=== PATIENT | female | born 1930 | race Caucasian/White ===

== ENCOUNTER → 2016-09-14 | Outpatient (CLI) | payer OTHER | LOC: FIMAGING 14:22 | PROVIDERS: ATTEND Family Medicine Geriatric Medicine | DX: Z03.89 Encounter for observation for other suspected diseases and conditions ruled out (principal); I67.82 Cerebral ischemia ==

== ENCOUNTER 2017-12-19 12:19 | Inpatient (IN) | payer OTHER ==
--- NOTE | 2017-12-19 12:42 | EDPHY ---
General - History Smoking Status: Former smoker Time Seen by Provider: 12/19/17 12:32 Narrative: CHIEF COMPLAINT: Fall, hip pain HISTORY OF PRESENT ILLNESS: Patient presents by EMS with complaints of fall and hip pain. She states that she was in her living room last night walking in front of chairs when she tripped and fell. She was attempting to gather up items. She says she landed on her left hip and low back. Since then she has had severe pain on the left hip. This radiates into the left buttock. She denies striking her head or losing consciousness. She denies any headache, neck pain, chest, back or abdominal pain. She has complains of severe pain in the left hip and buttock. Mild pain in the left knee. She was unable to bear any weight, that she pressed her Alert button. Her independent living facility provided assistance for up to a bed. She woke this morning with no improvement in her symptoms and thus arrives here. No other associated complaints or modifying factors. She does not take any anticoagulants. REVIEW OF SYSTEMS: Ten systems reviewed and are negative unless otherwise noted in the HPI PCP: Dr. Guzman SPECIALISTS: Dr. Jenna Raymond, cardiology Dr. Morse, oncology PAST MEDICAL HISTORY: Breast cancer, rheumatoid arthritis, atrial fibrillation, pacemaker placement, pulmonary hypertension, sarcoma PAST SURGICAL HISTORY: Sarcoma removal, tonsillectomy, cholecystectomy, appendectomy, pacemaker placement SOCIAL HISTORY: Nonsmoker. Lives in independent living FAMILY HISTORY: Noncontributory EXAMINATION General Appearance: Alert, no distress Head: normocephalic, atraumatic. No depression, Mulligan sign or raccoon eyes. No hematoma. No outward signs of trauma. Eyes: Pupils equal and round, no conjunctival pallor or injection ENT, Mouth: Mucous membranes moist. Dentures in place. Airway widely patent Neck: Normal inspection, supple, non-tender no crepitus or deformity. Respiratory: Lungs are clear to auscultation. No wheezing, rhonchi or crackles Cardiovascular: Regular rate and rhythm. No murmur. Gastrointestinal: Abdomen is soft and nontender. No tympany rigidity. Back: non-tender, no bony abnormalities Neurological: GCS 15. A&O, nonfocal, strength is symmetric in the upper extremities. Unable to ambulate due to left hip pain Skin: Warm and dry, no rash. There are multiple areas of bruising. There is a left breast tissue disturbance consistent with blister formation and de chip. She has a Mepilex dressing in place over this. I do not appreciate any cellulitis. Extremities: Mild tenderness of the left knee. There is tenderness of the left greater trochanter and in the left inguinal canal. Unable to range the left hip due to pain. Range of motion of the lower extremities unable to be compared, but she does have range of motion of the left ankle without pain. Psychiatric: Mood and affect normal DIFFERENTIAL DIAGNOSES: Including but not limited to hip fracture, pelvic fracture, sprain, strain, knee contusion, knee sprain MDM: 12:40 p.m. Reported mechanical fall with left hip and pelvic pain as well as mild left knee pain. I have ordered plain films of these areas but I have also ordered CT scans of the head cervical spine given her fall at age 87. She has no complaints of pain anywhere else. Vital signs are within normal limits. She is in no acute distress. 1:40 p.m. Patient's niece is now at bedside. They would like to decline the CT scans of the head cervical spine. I discussed the risks, benefits and alternatives of doing so, particularly at age 87. She states that she is willing to assume the risks, I do feel that she is capable of making these decisions. Additionally, the niece at bedside is comfortable with holding off on CT scans at this time as well. I informed him that we will watch her and she reconsiders would be happy to perform the scans. Additionally, I discussed her plain films which do show inferior and superior pubic ramus fractures. I do not appreciate any hip fracture. This does clinically correlate with her location of pain. She is nonweightbearing due to the pain, thus she will need to be admitted for a further evaluation. 2:05 p.m. Case discussed with on-call orthopedist Dr. Fritz mcclellan. He will provide consultation for the pubic rami fractures. 2:13 p.m. Case discussed with hospitalist Dr. Guerrero. He will admit the patient is service. She is admitted in stable condition. I did discuss that the patient will likely need wound care for the left anterior chest skin changes. SUPERVISION: Patient was independently examined, but I discussed the case with my secondary supervising physician Dr. Tayla Otto ([facility]) - Diagnostics Imaging Results: Imaging Impressions Chest X-Ray 12/19/17 12:42 Impression: 1. Negative for acute posttraumatic sequela. 2. Suspect airways disease. 3. See above report for additional findings. Hip X-Ray 12/19/17 12:42 Impression: Mildly displaced fractures of the left superior and inferior pubic rami. Left Knee, 5 Views Clinical Indications: Pain following trauma. Findings: A fracture or other acute osseous abnormality is not identified. Generative changes are seen with joint space loss and bony hypertrophic changes most severe in the medial and patellofemoral compartments. Meniscal calcification is noted. There may be a minimal joint effusion. Impression: Left knee negative for fracture with degenerative changes and probable joint effusion noted. The graft Results called and discussed with [facility] PAC on 12/19/2017 at 14:00. Knee X-Ray 12/19/17 12:43 Impression: Mildly displaced fractures of the left superior and inferior pubic rami. Left Knee, 5 Views Clinical Indications: Pain following trauma. Findings: A fracture or other acute osseous abnormality is not identified. Generative changes are seen with joint space loss and bony hypertrophic changes most severe in the medial and patellofemoral compartments. Meniscal calcification is noted. There may be a minimal joint effusion. Impression: Left knee negative for fracture with degenerative changes and probable joint effusion noted. The graft Results called and discussed with [facility] PAC on 12/19/2017 at 14:00. Discussion: The patient was evaluated and managed by the Physician Digital Community Manager. I discussed the patient's presentation and course with the midlevel provider with them and agree with the evaluation. My co-signature indicates that I have reviewed this chart and I agree with the findings and plan of care as documented. I am the secondary supervising physician. (Tayla Otto) - Objective Vital Signs: Initial Vital Signs Temperature (C) 36.7 C 12/19/17 12:23 Heart Rate 77 12/19/17 12:23 Respiratory Rate 18 12/19/17 12:23 Blood Pressure 116/77 12/19/17 12:23 O2 Sat (%) 95 12/19/17 12:23 O2 Delivery Mode Room Air Allergies/Adverse Reactions: Penicillins Allergy (Verified 02/02/16 19:48) Rash Home Medications: Medication Instructions Recorded Ascorbic Acid [Vitamin C 500 mg 1,000 mg PO DAILY 06/16/15 (*)] Calcium Carbonate [Oyster Shell 500 mg PO DAILY 12/15/14 Calcium 500 mg (*)] Furosemide [Lasix 40 MG (*)] 60 mg PO DAILY 12/15/14 Vitamin B Complex [B Complex] 1 each PO DAILY 12/15/14 predniSONE 5 mg PO DAILY 12/15/14 Bimatoprost 0.01% [Lumigan 0.01% 1 drops EACHEYE HS 08/10/15 (*)] Dorzolamide 2% [Trusopt 2% (*)] 1 drops EACHEYE BID 08/10/15 traMADol [Ultram 50 mg (*)] 50 mg PO HS PRN 08/10/15 Herbals/Supplements -Info Only 1 ea PO DAILY 02/02/16 traZODone [traZODONE 50MG (*)] 25 mg PO HS PRN #0 tab 05/12/16 Acetaminophen [Tylenol ES 500 mg 500 mg PO Q8HRS PRN 12/19/17 (*)] Cholecalciferol Vit D3 [Vitamin D3 1,000 units PO DAILY 12/19/17 (*)] Diltiazem HCl [Cartia Xt] 120 mg PO DAILY 12/19/17 FLUoxetine [Prozac 20 MG (*)] 60 mg PO DAILY 12/19/17 Fulvestrant [Faslodex] 250 mg IM Q30D 12/19/17 Levothyroxine [Synthroid 50 mcg 50 mcg PO DAILY06 12/19/17 (*)] Metoprolol Succinate Xr [Toprol Xl 12.5 mg PO HS 12/19/17 25 mg (*)] [place]-3 Fatty Acids [Fish Oil 1000 1,000 mg PO DAILY 12/19/17 mg (*)] Palbociclib [Ibrance] 100 mg PO AD 12/19/17 Potassium Cl [Klor-Con 20 meq (*)] 20 meq PO DAILY 12/19/17 buPROPion XL [Wellbutrin Xl] 300 mg PO DAILY 12/19/17 Laboratory Results: Laboratory Results 12/19/17 12:55 12/19/17 12:55 12/19/17 12/19/17 12/19/17 12:55 12:55 12:55 WBC 2.86 10^3/uL L 10^3/uL (3.80-9.50) RBC 2.76 10^6/uL L 10^6/uL (4.18-5.33) Hgb 10.8 g/dL L g/dL (12.6-16.3) Hct 31.1 % L % (38.0-47.0) MCV 112.7 fL H fL (81.5-99.8) MCH 39.1 pg H pg (27.9-34.1) MCHC 34.7 g/dL g/dL (32.4-36.7) RDW 13.4 % % (11.5-15.2) Plt Count 63 10^3/uL L 10^3/uL (150-400) MPV 10.0 fL fL (8.7-11.7) Neut % (Auto) Not Reported Lymph % (Auto) Not Reported Hughes % (Auto) Not Reported Eos % (Auto) Not Reported Baso % (Auto) Not Reported Nucleat RBC Rel Count Not Reported Absolute Neuts (auto) Not Reported Absolute Lymphs (auto) Not Reported Absolute Monos (auto) Not Reported Absolute Eos (auto) Not Reported Absolute Basos (auto) Not Reported Absolute Nucleated RBC Not Reported Immature Gran % Not Reported Seg Neutrophils % 82.8 % % Band Neutrophils % 0 % % Lymphocytes % 6.1 % % Monocytes % 6.1 % % Eosinophils % 3.0 % % Basophils % 2.0 % % Metamyelocytes % 0 % % Myelocytes % 0 % % Promyelocytes % 0 % % Blast Cells % 0 % % Immature Gran # Not Reported Absolute Seg Neuts 2.37 10^/uL 10^/uL (1.70-6.50) Absolute Band Neuts 0.00 10^3/uL 10^3/uL (0.00-0.70) Absolute Lymphocytes 0.17 10^3/uL L 10^3/uL (1.00-3.00) Absolute Monocytes 0.17 10^3/uL L 10^3/uL (0.30-0.80) Absolute Eosinophils 0.09 10^3/uL 10^3/uL (0.03-0.40) Absolute Basophils 0.06 10^3/uL 10^3/uL (0.02-0.10) Absolute Metamyelocyte 0.00 10^3/mL 10^3/mL (0.00-0.00) Absolute Myelocytes 0.00 10^3/mL 10^3/mL (0.00-0.00) Absolute Promyelocytes 0.00 10^3/uL 10^3/uL (0.00-0.00) Absolute Plasma Cells 0.00 10^3/uL 10^3/uL (0.00-0.00) Absolute Blast Cells 0.00 10^3/uL 10^3/uL (0.00-0.00) Plasma Cells % 0 % % Platelet Estimate DECREASED L (ADEQ) Oval Macrocytes 1+ H PT 15.1 SEC H SEC (12.0-15.0) INR 1.17 H (0.83-1.16) APTT 26.3 SEC SEC (23.0-38.0) Sodium 135 mEq/L mEq/L (135-145) Potassium 4.1 mEq/L mEq/L (3.3-5.0) Chloride 101 mEq/L mEq/L (97-110) Carbon Dioxide 25 mEq/l mEq/l (22-31) Anion Gap 9 mEq/L mEq/L (8-16) BUN 20 mg/dL mg/dL (7-23) Creatinine 0.7 mg/dL mg/dL (0.6-1.0) Estimated GFR > 60 Glucose 107 mg/dL H mg/dL (70-100) Calcium 9.1 mg/dL mg/dL (8.5-10.4) Lipase 28 IU/L IU/L (23-300) Medications Given: Discontinued Medications Morphine Sulfate (Morphine) 2 mg IVP EDNOW ONE Stop: 12/19/17 12:46 Last Admin: 12/19/17 14:23 Dose: 2 mg Ondansetron HCl (Zofran) 4 mg IVP EDNOW ONE Stop: 12/19/17 12:46 Last Admin: 12/19/17 14:24 Dose: 4 mg Departure - Departure Disposition: [facility] Clinical Impression: Skin abnormality Fracture of left inferior pubic ramus Qualifiers: Encounter type: initial encounter Fracture type: closed Qualified Code(s): S32.592A - Other specified fracture of left pubis, initial encounter for closed fracture Fracture of left superior pubic ramus Qualifiers: Encounter type: initial encounter Fracture type: closed Qualified Code(s): S32.512A - Fracture of superior rim of left pubis, initial encounter for closed fracture Fall Qualifiers: Encounter type: initial encounter Qualified Code(s): W19.XXXA - Unspecified fall, initial encounter Condition: Good
[2017-12-19] MEDS ORDERED: ONDANSETRON 4 MG/2 ML VIAL IVP ONE (12:45)
[2017-12-19 14:04] LABS: INR 1.17 (0.83-1.16); PROTIME(PATIENT) 15.1 SEC (12.0-15.0)
[2017-12-19] MEDS ORDERED: ONDANSETRON DISINTEGRATING 4 MG TAB PO PRN (14:25)
[2017-12-19] MEDS ORDERED: ONDANSETRON 4 MG/2 ML VIAL IVP PRN (14:25)
[2017-12-19] MEDS ORDERED: ACETAMINOPHEN 325 MG TAB PO PRN (14:25)
[2017-12-19 14:39] LABS: PLATELET COUNT 63 10^3/uL (150-400)
--- NOTE | 2017-12-19 15:08 | PDGENHP ---
History and Physical - Chief Complaint fall, left hip pain - History of Present Illness the pt is a 87 yo female that presents after mechanical fall yesterday. Upon review of records, she has been having issues with balance and gait for the last 2 years. She states that she was in her living room last night walking in front of chairs when she tripped and fell. She was attempting to gather up items. She says she landed on her left hip and low back. Since then she has had severe pain on the left hip. This radiates into the left buttock. She denies striking her head or losing consciousness. She denies any headache, neck pain, chest, back or abdominal pain. She has complains of severe pain in the left hip and buttock. Mild pain in the left knee. She was unable to bear any weight, that she pressed her Alert button. Her independent living facility provided assistance for up to a bed. She woke this morning with no improvement in her symptoms and presented the the E.D. No other associated complaints or modifying factors. She does not take any anticoagulants. In regards to her hx of balance and gait, she reports that these started about 2 years ago following a mechanical fall during which she hit her head. She has seen her PCP and has been recommended to PT, but has not been able to do this. She does not report any coordination problems. She reports both weakness and sometimes feeling dizzy at various points throughout the day including when sitting, standing, and walking. She does not think there is a specific pattern. She has not been told that she is hypotensive or have orthostatic hypotension. She has not had chest pain or SOB. She denies any vestibular problem or vertigo. She does not have any focal weakness. She does not report that the weakness is progressive but has been persistent. She was taken off AC 2 years ago following her initial fall. In the ER she is found to have left mildly displaced superior and inferior pubic rami fracture. Dr. Fritz Duarte with Ortho has been consulted Imaging of the Head were not obtained as the pt did not want to. She has a hx of left breast cancer and is s/p left mastectomy. She has a wound and this is being followed by Dr. Roy. Labs reveal pancytopenia. A review of her records show that she has had Leukopenia and anemia in the past and mild thrombocytopenia. A CXR was unrevealing. She is on RA PCP: Dr. Guzman SPECIALISTS: Dr. Jenna Raymond, cardiology Dr. Morse, oncology PAST MEDICAL HISTORY: Breast cancer, rheumatoid arthritis, atrial fibrillation, pacemaker placement, pulmonary hypertension, sarcoma PAST SURGICAL HISTORY: Sarcoma removal, tonsillectomy, cholecystectomy, appendectomy, pacemaker placement SOCIAL HISTORY: Nonsmoker. Lives in independent living FAMILY HISTORY: Noncontributory History Information - Allergies/Home Medication List Allergies/Adverse Reactions: Penicillins Allergy (Verified 02/02/16 19:48) Rash Home Medications: Ascorbic Acid [Vitamin C 500 mg (*)] 1,000 mg PO DAILY 12/15/14 [Last Taken ] Calcium Carbonate [Oyster Shell Calcium 500 mg (*)] 500 mg PO DAILY 12/15/14 [ Last Taken 12/18/17] Furosemide [Lasix 40 MG (*)] 60 mg PO DAILY 12/15/14 [Last Taken 12/19/17] Vitamin B Complex [B Complex] 1 each PO DAILY 12/15/14 [Last Taken 12/19/17] predniSONE 5 mg PO DAILY 12/15/14 [Last Taken 12/19/17] Bimatoprost 0.01% [Lumigan 0.01% (*)] 1 drops EACHEYE HS 08/10/15 [Last Taken ] Dorzolamide 2% [Trusopt 2% (*)] 1 drops EACHEYE BID 08/10/15 [Last Taken ] traMADol [Ultram 50 mg (*)] 50 mg PO HS PRN 08/10/15 [Last Taken 12/18/17 21:00] Herbals/Supplements -Info Only 1 ea PO DAILY 02/02/16 [Last Taken 01/31/16] Acetaminophen [Tylenol ES 500 mg (*)] 500 mg PO Q8HRS PRN 12/19/17 [Last Taken 12/18/17 21:00] Cholecalciferol Vit D3 [Vitamin D3 (*)] 1,000 units PO DAILY 12/19/17 [Last Taken 12/19/17] Diltiazem HCl [Cartia Xt] 120 mg PO DAILY 12/19/17 [Last Taken 12/19/17] FLUoxetine [Prozac 20 MG (*)] 60 mg PO DAILY 12/19/17 [Last Taken 12/19/17] Fulvestrant [Faslodex] 250 mg IM Q30D 12/19/17 [Last Taken 1 Week Ago ~12/12/17] Levothyroxine [Synthroid 50 mcg (*)] 50 mcg PO DAILY06 12/19/17 [Last Taken ] Metoprolol Succinate Xr [Toprol Xl 25 mg (*)] 12.5 mg PO HS 12/19/17 [Last Taken 12/18/17] [place]-3 Fatty Acids [Fish Oil 1000 mg (*)] 1,000 mg PO DAILY 12/19/17 [Last Taken 12/18/17] Palbociclib [Ibrance] 100 mg PO AD 12/19/17 [Last Taken 12/16/17] Potassium Cl [Klor-Con 20 meq (*)] 20 meq PO DAILY 12/19/17 [Last Taken 12/19/17 ] buPROPion XL [Wellbutrin Xl] 300 mg PO DAILY 12/19/17 [Last Taken 12/19/17] I have personally reviewed and updated: medical history, social history - Social History Smoking Status: Former smoker Review of Systems Review of Systems: ROS: 10pt was reviewed & negative except for what was stated in HPI & below Physical Exam Physical Exam: Temp Pulse Resp BP Pulse Ox 36.7 C 77 18 116/77 95 12/19/17 12:23 12/19/17 12:23 12/19/17 12:23 12/19/17 12:23 12/19/17 12:23 Constitutional: no apparent distress Eyes: PERRL, EOMI Ears, Nose, Mouth, Throat: moist mucous membranes, hearing normal Cardiovascular: regular rate and rhythym, No edema Respiratory: no respiratory distress, no rales or rhonchi Gastrointestinal: normoactive bowel sounds Skin: warm Musculoskeletal: generalized weakness Neurologic: AAOx3, CN II-XII Intact, No facial droop Psychiatric: interacting appropriately, not anxious, not encephalopathic Lymph, Heme, Immunologic: No petechiae Lab Data & Imaging Review 12/19/17 12:55 12/19/17 12:55 WBC 2.86 10^3/uL (3.80-9.50) L 12/19/17 12:55 RBC 2.76 10^6/uL (4.18-5.33) L 12/19/17 12:55 Hgb 10.8 g/dL (12.6-16.3) L 12/19/17 12:55 Hct 31.1 % (38.0-47.0) L 12/19/17 12:55 MCV 112.7 fL (81.5-99.8) H 12/19/17 12:55 MCH 39.1 pg (27.9-34.1) H 12/19/17 12:55 MCHC 34.7 g/dL (32.4-36.7) 12/19/17 12:55 RDW 13.4 % (11.5-15.2) 12/19/17 12:55 Plt Count 63 10^3/uL (150-400) L 12/19/17 12:55 MPV 10.0 fL (8.7-11.7) 12/19/17 12:55 PT 15.1 SEC (12.0-15.0) H 12/19/17 12:55 INR 1.17 (0.83-1.16) H 12/19/17 12:55 APTT 26.3 SEC (23.0-38.0) 12/19/17 12:55 Sodium 135 mEq/L (135-145) 12/19/17 12:55 Potassium 4.1 mEq/L (3.3-5.0) 12/19/17 12:55 Chloride 101 mEq/L (97-110) 12/19/17 12:55 Carbon Dioxide 25 mEq/l (22-31) 12/19/17 12:55 Anion Gap 9 mEq/L (8-16) 12/19/17 12:55 BUN 20 mg/dL (7-23) 12/19/17 12:55 Creatinine 0.7 mg/dL (0.6-1.0) 12/19/17 12:55 Estimated GFR > 60 12/19/17 12:55 Glucose 107 mg/dL (70-100) H 12/19/17 12:55 Calcium 9.1 mg/dL (8.5-10.4) 12/19/17 12:55 Lipase 28 IU/L (23-300) 12/19/17 12:55 Assessment & Plan Assessment: #s/p Mechanical Fall (Acute) in pt with chronic balance and gait abnormalities. #Fracture of left inferior pubic ramus (Acute) #Fracture of left superior pubic ramus (Acute) #Left breast cancer, s/p mastectomy, with wound -Followed by Dr. Roy -Wound care to see -I have not notified Surgery as may be able to f/u as an outpatient #Generalized Weakness #Pancytopenia -Monitor for now, repeat labs. If worse, may need to f/u with Onc as outpatient vs inpatient #Macrocytosis #Hx of Afib, not on AC #RA #Hypothyroidism #chronic steroid use Plan: Per above pain mgmt Ortho to consult, although felt to be non surgical this patient will likely benefit from Rehab vs SNF PT/OT SCD given Thrombocytopenia. If stable consider chemical DVT proph check B12, Folate, repeat labs Tele check prealbumin appropriate home meds
[2017-12-19] MEDS ORDERED: traZODone 50 MG TAB PO PRN (15:13)
[2017-12-19] MEDS: traMADol 50 MG TAB PO PRN (18:32)
[2017-12-19] MEDS: METOPROLOL SUCCINATE XR 25 MG TAB PO SCH (20:51)
[2017-12-19] MEDS: Brinzolamide/Brimonidine Tart [Simbrinza 1%-0.2% Eye Drops] EACHEYE SCH (20:53)
[2017-12-19] MEDS: DORZOLAMIDE/TIMOLOL 10 ML OPHT.BTL EACHEYE SCH (20:54)
[2017-12-19] MEDS ORDERED: BIMATOPROST 0.01% 2.5 ML OPHT.BTL EACHEYE SCH (21:00)
[2017-12-19] MEDS ORDERED: DORZOLAMIDE 2% OPTH DROPS EACHEYE SCH (21:00)
[2017-12-19] MEDS: OXYCODONE/APAP 5/325 TAB PO PRN (21:35)
[2017-12-20] MEDS: LEVOTHYROXINE 50 MCG TAB PO SCH (05:16)
[2017-12-20] MEDS: traMADol 50 MG TAB PO PRN ×3 (05:16→21:30)
[2017-12-20 06:50] LABS: PLATELET COUNT 43 10^3/uL (150-400)
[2017-12-20] MEDS: VITAMIN B COMPLEX 1 EA CAP/TAB PO SCH (08:30)
[2017-12-20] MEDS: DILTIAZEM CD 120 MG CAP PO SCH (08:30)
[2017-12-20] MEDS: predniSONE 5 MG TAB PO SCH (08:30)
[2017-12-20] MEDS: FLUoxetine 20 MG CAP PO SCH (08:30)
[2017-12-20] MEDS: POTASSIUM CL 20 MEQ TAB PO SCH (08:30)
[2017-12-20] MEDS: OMEGA-3 FATTY ACIDS 1,000 MG CAP PO SCH (08:31)
[2017-12-20] MEDS: CHOLECALCIFEROL VIT D3 1,000 UNITS TAB PO SCH (08:32)
[2017-12-20] MEDS: buPROPion XL 150 MG TAB PO SCH (08:32)
[2017-12-20] MEDS: FUROSEMIDE 40 MG TAB PO SCH (08:32)
[2017-12-20] MEDS: ASCORBIC ACID 500 MG TAB PO SCH (08:32)
[2017-12-20] MEDS: CALCIUM CARBONATE 500 MG TAB PO SCH (08:32)
[2017-12-20] MEDS: DORZOLAMIDE/TIMOLOL 10 ML OPHT.BTL EACHEYE SCH ×2 (08:42→21:07)
[2017-12-20] MEDS ORDERED: Herbals/Supplements -Info Only PO SCH (09:00)
[2017-12-20] MEDS ORDERED: ENOXAPARIN 40 MG/0.4 ML SYR SC SCH (09:00)
--- NOTE | 2017-12-20 09:01 | WOCRNPDOC ---
WOCRN Advanced Assessment Note - Skin Integrity Problem, Advanced Assess Left Breast Dressing Type: Adaptic Touch, Allevyn Life Dressing Description: Shadowed Exudate Amount: Moderate Exudate Color: Red, Brown Exudate Characteristic(s): Serosanguinous Integumentary Issue Intervention: Dressing Changed, Dressing Initialed & Dated Dinah Wound Tissue: Scarred, Painful/Tender Dinah Wound Swelling: None Wound Bed Color: Red, Yellow Wound Bed Constitution: Granulation Tissue (30%), Red/Neibert - Non Granular Tissue (50%), Dried Exudate (20%) Wound Edges: Irregular Site Odor: Slight Site Measurement - Head-to-Toe Length X Width X Depth (cm): 6x9x0.1cm Skin Integrity Problem Comment: Chronic wound over L breast, s/p mastectomy for breast cancer. [facility] where she resides. Wound is currently moderately exudative, approx. 20% dried slough medially, remaining wound bed a mix of granulating and smooth tissues. C/o extreme pain and tenderness during assessment/cleansing of wound. Periwound skin is scarred, but otherwise intact. Applied Manukatex honey contact layer to soften slough, followed by Allevyn Life dressing. Additional wound care supplies sent to [facility] so that nurses may do the dressing changes going forward. Wound care will see patient again in one week, 12/27. Report given to polymerization kettle operatorRAIMUNDO Ferrera.
--- NOTE | 2017-12-20 10:33 | PDCONSULT ---
Anesthesia Associate Note: Orthopaedic Consult DOS 12/20/2017 HPI: Called by Trauma service to see Ms Duran at her bedside. Ms Duran is a 87y F s/p trip and fall onto left hip and buttock. She c/o groin and some flank pain with rolling in bed. Had significant pain with attempted mobilization in ED so was admitted for placement/PT. PMHx: includes Breast Ca, anemia. RA PSHx: includes mstectomy, pacemaker placement, appendectomy, cholecystectomy, tonsillectomy Meds: please see intake All: PCN FamHx: Noncontributory SocHx: lives independently. Ambulates at baseline. Denies smoking PE: AxOx3. TTP Left groin/pubis. Mild TTP left flank bruise and ischium Small bruise on left flank. SILT S/S/SP/Dp/T 5/ TA/GS/EHL/FHL WWP BLE Imaging: Left superior and inferior pubic rami fractures. No vertical displacement of left posterior pelvis. AP: 87yF h/o RA p/w Left sup/inf pubic rami fractures admitted for pain control and placement - WBAT LLE (but may tolerate Touchdown weightbearing far more - Suggest repeat pelvic films after patient mobilize (AP, Inlet, Outlet) - if no major displacement changes, continue WBAT/TDWB - Return to clinic for followup in 2-[address] Duarte - Pain control - PT/placement
--- NOTE | 2017-12-20 10:48 | ASMTCMCOM ---
CM Note CM Note Notes: Pt admitted after fall sustaining pubic/rami fx. Ortho consult this AM, no surgery planned. Pt lives at [facility]. CM met w/pt who is open to going to [facility] if needed prior to returning to [facility] living there. Spoke w/Juan Antonio at [facility] and she thinks she will have bed available. Referral sent to Juan Antonio, awaiting therapy evals and will need to add these to referral once available. CM will follow. Date Signed: 12/20/2017 10:47 AM Electronically Signed By:uHe Vazquez RN
--- NOTE | 2017-12-20 14:50 | HOSPPROG ---
Hospitalist Progress Note Assessment/Plan: 87y female with fall. First encounter, chart reviewed. D/W CM #s/p Mechanical Fall (Acute) in pt with chronic balance and gait abnormalities. -need rehab #Fracture of left inferior pubic ramus (Acute) -stable -appreciate ortho consult #Fracture of left superior pubic ramus (Acute) -stable #Left breast cancer, s/p mastectomy, with wound -Followed by Dr. Roy -Wound care to see -I have not notified Surgery as may be able to f/u as an outpatient #Generalized Weakness -rehab #Pancytopenia -stable -Monitor for now, repeat labs. If worse, may need to f/u with Onc as outpatient vs inpatient #Macrocytosis -stable #Hx of Afib, not on AC #RA #Hypothyroidism #chronic steroid use Plan: to rehab when able SCD given Thrombocytopenia. If stable consider chemical DVT proph Subjective: Still having pain. No other complaints. Eager to leave. Objective: Vital Signs Temp Pulse Resp BP Pulse Ox 36.6 C 79 14 86/49 L 96 12/20/17 11:03 12/20/17 11:03 12/20/17 11:03 12/20/17 11:03 12/20/17 11:03 Laboratory Results 12/20/17 05:11 12/19/17 12/20/17 12/21/17 05:59 05:59 05:59 Intake Total 700 450 Output Total 400 200 Balance 300 250 PT 15.1 SEC (12.0-15.0) H 12/19/17 12:55 INR 1.17 (0.83-1.16) H 12/19/17 12:55 - Physical Exam Constitutional: appears nourished, chronically ill appearing, uncomfortable Eyes: PERRL, anicteric sclera, EOMI Ears, Nose, Mouth, Throat: moist mucous membranes, hearing normal, ears appear normal Cardiovascular: irregularly irregular, No JVD, No edema Respiratory: no respiratory distress, no rales or rhonchi, reduced air movement Gastrointestinal: No tenderness, No ascites, No guarding Skin: warm, normal color, No mottled Musculoskeletal: pain with ROM, muscular tenderness, generalized weakness Neurologic: AAOx3 Psychiatric: not anxious, not encephalopathic, poor judgement, poor memory ICD10 Worksheet Patient Problems: Problems Problem Status Onset Depression - Depressive disorder Active Hypothyroidism Active Afib - Atrial fibrillation Active Essential hypertension Active Cellulitis Active Traumatic hematoma of face Acute Right rib fracture Acute Fall Acute Fracture of left inferior pubic ramus Acute Fracture of left superior pubic ramus Acute Skin abnormality Acute
[2017-12-20] MEDS ORDERED: BISACODYL 10 MG SUPP PR PRN (18:10)
[2017-12-20] MEDS ORDERED: POLYETHYLENE GLYCOL 3350 17 GM PKT PO PRN (18:10)
[2017-12-20] MEDS ORDERED: MAGNESIUM HYDROXIDE 30 ML UDCUP PO PRN (18:10)
[2017-12-20] MEDS ORDERED: LACTULOSE 20 GM/30 ML UDCUP PO PRN (18:10)
[2017-12-20] MEDS: Brinzolamide/Brimonidine Tart [Simbrinza 1%-0.2% Eye Drops] EACHEYE SCH (21:06)
[2017-12-20] MEDS: SENNOSIDES/DOCUSATE SODIUM TAB PO SCH (21:07)
[2017-12-20] MEDS ORDERED: NS 500 ML IV ONE (22:08)
[2017-12-20] MEDS: METOPROLOL SUCCINATE XR 25 MG TAB PO SCH (23:35)
[2017-12-21] MEDS: OXYCODONE/APAP 5/325 TAB PO PRN ×3 (02:34→20:54)
[2017-12-21] MEDS ORDERED: NS BOLUS 500 ML IV ONE (05:00)
[2017-12-21] MEDS: LEVOTHYROXINE 50 MCG TAB PO SCH (05:15)
[2017-12-21] MEDS: traMADol 50 MG TAB PO PRN (08:28)
[2017-12-21] MEDS: OMEGA-3 FATTY ACIDS 1,000 MG CAP PO SCH (08:36)
[2017-12-21] MEDS: VITAMIN B COMPLEX 1 EA CAP/TAB PO SCH (08:36)
[2017-12-21] MEDS: predniSONE 5 MG TAB PO SCH (08:36)
[2017-12-21] MEDS: DILTIAZEM CD 120 MG CAP PO SCH (08:36)
[2017-12-21] MEDS: CHOLECALCIFEROL VIT D3 1,000 UNITS TAB PO SCH (08:36)
[2017-12-21] MEDS: buPROPion XL 150 MG TAB PO SCH (08:37)
[2017-12-21] MEDS: SENNOSIDES/DOCUSATE SODIUM TAB PO SCH ×2 (08:37→20:54)
[2017-12-21] MEDS: CALCIUM CARBONATE 500 MG TAB PO SCH (08:37)
[2017-12-21] MEDS: FLUoxetine 20 MG CAP PO SCH (08:37)
[2017-12-21] MEDS: POTASSIUM CL 20 MEQ TAB PO SCH (08:37)
[2017-12-21] MEDS: DORZOLAMIDE/TIMOLOL 10 ML OPHT.BTL EACHEYE SCH ×2 (08:37→20:54)
[2017-12-21] MEDS: ASCORBIC ACID 500 MG TAB PO SCH (08:37)
[2017-12-21] MEDS: FUROSEMIDE 40 MG TAB PO SCH (08:38)
--- NOTE | 2017-12-21 10:54 | ASMTCMCOM ---
CM Note CM Note Notes: Juan Antonio with [facility] reports she now has a female bed, pt will not have to share with male. Pt PASRR triggered, faxed to [facility]. CM to follow. Date Signed: 12/21/2017 10:53 AM Electronically Signed By:SNEHAL Sánchez
--- NOTE | 2017-12-21 11:35 | GCON ---
[f rep st] CONSULTATION MEDICAL ONCOLOGY FOLLOWUP CONSULTATION REASON FOR CONSULTATION: Ongoing management of recurrent breast cancer. RECOMMENDATIONS: 1. Agree with wound care consultation as you are doing. 2. I would consult Radiation Oncology for consideration of palliative radiation to her left chest wa ll for reasons of pain control. 3. She will discuss continuation of Faslodex plus Ibrance with Dr. Laura Morse, who is her primary onc ologist, as an outpatient. The consideration would be as to whether to change her from her current h ormonal therapy to another treatment, such as low dose capecitabine. 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 She fell while going to bed. She fractured her left pelvis in 2 places. We were requested to stop by and see the patient to discuss her left chest wall recurrence and her br east cancer. The patient is currently complaining of pain in her left chest wall. Although this see ms acute at the moment, I think it has been ongoing even before her fall. Her wound has also not bee n healing well. The patient is mostly interested in measures that will help to relieve her pain and improve her quality of life. She knows she will be going to the care center at [facility] for urther care after this hospitalization. The patient's prognosis is limited by not only her breast cancer, but also the high risk of complicat ions after a pelvic fracture at her age. This will all need to be taken into consideration when deci ding what the most appropriate therapy might be. I have discussed this with the patient, as well as with her niece, as well as with Lito Aguayo, who is her primary oncologist. HISTORY OF PRESENT ILLNESS: Please see Assessment. PAST MEDICAL HISTORY: Remarkable for breast cancer, left breast, upper outer quadrant, which was adrienne gnosed in September 2014. At that time, she was stage IIB. She was estrogen and progesterone receptor p ositive and HER-2 negative. She was treated with a modified radical mastectomy and lymph node dissec tion. She had 1 positive lymph node out of 25. Her current evidence of metastatic disease is in lef t chest wall. However, because of her overall clinical condition, it has been difficult to fully tisha luate the extent of disease. In addition, her past medical history is remarkable for atrial fibrilla tion. She is status post AV derrick ablation and dual chamber pacemaker placement. She is on chronic anticoagulation. She has also had a history of pulmonary hypertension and using oxygen at night. 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 This was t reated at [facility]. She had surgery, followed by chemotherapy at that time. She has a history of osteoporosis diagnosed in 2014 on her DEXA scan. PAST SURGICAL HISTORY: Remarkable for the left mastectomy. She has also had the above-mentioned lef t shoulder sarcoma resection, pacemaker placement in 2013. She has had a cholecystectomy and a tonsi llectomy. FAMILY HISTORY: Remarkable for her having had a sister who of glioblastoma. She had 1 son who at age 55 of complications of an aneurysm, and another son has small lymphocytic lymphoma. SOCIAL HISTORY: The patient is and living at [facility]. 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 REVIEW OF SYSTEMS: Primarily remarkable for pain in her pelvis, open left chest wall wound requiring dressing changes and left chest wall pain. A 10-system review is otherwise unremarkable. PHYSICAL EXAMINATION: GENERAL: Reveals an alert woman in mild distress, mostly related to discomfor t of her chest wall and pelvis. SKIN: Her left chest wall shows an open wound that is consistent wi th local recurrence of her breast cancer. Thank you very much for allowing us to continue to participate in this pleasant woman's care. We starla novoa continue to assist with her management during this hospitalization and after discharge. /[id number]/MODL
--- NOTE | 2017-12-21 14:08 | HOSPPROG ---
Hospitalist Progress Note Assessment/Plan: 87y female with fall. D/W Dr Duque #s/p Mechanical Fall (Acute) in pt with chronic balance and gait abnormalities. -need rehab #Fracture of left inferior pubic ramus (Acute) -stable -appreciate ortho consult -pt refusing further xrays #Fracture of left superior pubic ramus (Acute) -stable #Left breast cancer, s/p mastectomy, with wound -Followed by Dr. Roy -Wound care to see #Chest wall pain -rec onc radiation -consult ordered for today #Generalized Weakness -rehab #Orthostatic -cards consult -appreciate Dr Muñiz -cont to hold meds #Pancytopenia -stable -Monitor for now, repeat labs. If worse, may need to f/u with Onc as outpatient vs inpatient #Macrocytosis -stable #Hx of Afib, not on AC #RA #Hypothyroidism #chronic steroid use Plan: to rehab when able SCD given Thrombocytopenia await radiation consult follow BP plan for DC to inpt rehab when BP stable Subjective: Still having significant pain when moving. No other specific issues. Objective: Vital Signs Temp Pulse Resp BP Pulse Ox 36.8 C 84 18 101/58 L 93 12/21/17 12:00 12/21/17 12:00 12/21/17 12:00 12/21/17 12:00 12/21/17 12:00 Laboratory Results 12/20/17 05:11 12/20/17 12/21/17 12/22/17 05:59 05:59 05:59 Intake Total 700 2230 Output Total 400 350 Balance 300 1880 PT 15.1 SEC (12.0-15.0) H 12/19/17 12:55 INR 1.17 (0.83-1.16) H 12/19/17 12:55 - Physical Exam Constitutional: appears nourished, chronically ill appearing, uncomfortable Eyes: PERRL, anicteric sclera, EOMI Ears, Nose, Mouth, Throat: moist mucous membranes, hearing normal, ears appear normal Cardiovascular: No JVD, No tachycardia, No edema Respiratory: no respiratory distress, no rales or rhonchi, reduced air movement Gastrointestinal: No tenderness, No ascites, No guarding Skin: warm, normal color, No mottled Musculoskeletal: no joint effusions, pain with ROM, generalized weakness Neurologic: AAOx3 Psychiatric: interacting appropriately, not anxious, not encephalopathic, thought process linear ICD10 Worksheet Patient Problems: Problems Problem Status Onset Depression - Depressive disorder Active Hypothyroidism Active Afib - Atrial fibrillation Active Essential hypertension Active Cellulitis Active Traumatic hematoma of face Acute Right rib fracture Acute Fall Acute Fracture of left inferior pubic ramus Acute Fracture of left superior pubic ramus Acute Skin abnormality Acute
--- NOTE | 2017-12-21 14:31 | GCON ---
[f rep st] CONSULTATION CARDIOLOGY CONSULTATION CHIEF COMPLAINT: Lightheadedness when standing. She has been found to be orthostatic while she is here in the hospital. Her blood pressure earlier w as 101/58 lying down and standing up it went to 72/58. She says she felt a little bit lightheaded th en, but that has not been a big complaint of hers. She has a lot of trouble with her balance, and she got herself into a bad position recently and fell and broke her pelvis, and then was admitted to the hospital for that. She said that she has almost no balance. It has gone away over a period of 2-3 years, and it has bee n gradually getting worse and worse, and now it is very easy for her to get in wrong positions or to not be able to catch her balance. She is trying to walk with a cane and a walker, and she is quite s uccessful walking with a walker. She had a fall and that is why she was admitted to the hospital. She had a history of atrial fibrill ation and came off her atrial fibrillation full anticoagulation, which would be recommended by her CH ADS-VASc score, because of her falls. She landed on her left hip and low back, and she had severe pain. She did not pass out. She did not hit her head. She denied palpitations. She was not being lightheaded at the time. She just knew t hat she was in trouble. She came into the emergency room and has since been admitted. What she is taking for atrial fibrillation for anticoagulation is aspirin only. She tells me that she is often weak now. She has a history of pulmonary hypertension. History of atrial fibrillation, but none recently. She sleeps on a slanted pillow. She does not wake up short of breath at night. She has no ankle swe lling that is significant. She has had no recent trauma to the head. She has a history of hypertens ion, and for that she takes diltiazem, Lasix and Lopressor. She has longstanding rheumatoid arthritis. CARDIAC RISK FACTORS: Positive for hypertension. Cardiac risk factors are negative for diabetes, hyperlipidemia, smoking, hyperuricemia, obesity, fami ly history of premature coronary disease or any known coronary artery disease in her case. The patient has said that she has had some congestive heart failure for several years and she sees [facility] for those issues. Her ejection fraction is said to be normal. She has not been hospital ized with congestive heart failure. MEDICATIONS: Medications are listed in the chart and include tramadol, dorzolamide, Lumigan, prednis one, furosemide, calcium carbonate, ascorbic acid, diltiazem, levothyroxine, metoprolol, potassium. ALLERGIES: Penicillin. FAMILY HISTORY: Her Dad had a myocardial infarction in his 60s. No 1 had premature coronary artery disease in the family, and no 1 had unexplained sudden in the family. REVIEW OF SYSTEMS: 10-point review of systems negative except for those issues that are noted above and the fact that the patient has had longstanding breast cancer. She has rheumatoid arthritis. She has a history of a pacemaker. She has had pulmonary hypertension. She has had sarcoma. The patien t has had pancytopenia before. SURGICAL HISTORY: Includes, but not limited to, sarcoma removal, tonsillectomy, cholecystectomy, pac emaker placement, left mastectomy. SOCIAL HISTORY: The patient was born in [place], [place] and grew up there. From there, she moved to [place] and lived in 3 different places in [place] with her , and they re tired to [place], where she lived for 26 years. Her and then her sister , and she came to be close to a niece here, and that was approximately 5 years ago. She does not smoke. She d oes not drink significant amounts of alcohol. She lives in independent living. PHYSICAL EXAMINATION: VITAL SIGNS: Her blood pressure is 101/58 lying flat, in standing it dropped to 72/58. She does not have any real complaints right now of being lightheaded. Earlier she has been lightheaded with changing position. HEAD/ NECK: Nontender. CARDIOVASCULAR: S 1, S2. Regular rhythm. Soft systolic murmur left sternal border. No diastolic murmur. No S3, S4. No rubs. PULMONARY: Reveals rhonchi bilaterally. No rales, wheezing, or dullness. ABDOMEN: Soft and nontender. CHEST: She has a pacemaker in place. She has a wound that is healing that Wound Ca re is taking care of. It is an open wound in the left chest consistent with local recurrence of christo st cancer presumably at this time. EXTREMITIES: Extremities reveal no edema, inflammation, or ulcer ation. No pain. PSYCH: No obvious anxiety or depression. NEUROLOGIC: Grossly intact, though she is orthostatic. SKIN: Skin shows age-related changes. FINDINGS: The patient is known to have had breast cancer in the left breast upper outer quadrant Sep, she was staged to be estrogen and progesterone receptor positive and HER-2 negative. She was treated with a modified radical mastectomy and lymph node dissection. She had 1 positive node a nd current evidence of metastatic disease is in the left chest wall. Her white count is 2.67. Her h ematocrit is 27.1. When she was admitted to the hospital, hematocrit was 31.1 with a white count of 2.86. As recently as 05/12/2016, her hematocrit was 35.8. Her platelet count is 43 now. Sodium is 135, potassium is 4.1, chloride is 101, carbon dioxide is 25, BUN is 20, creatinine is 0.7, glucose is 107. Her BNP is 540. Her pre-albumin is low at 17.5. Her pelvic films show superior an d inferior left pubic rami fractures. 1. Pelvic rami fractures. 2. Patient has incurred pelvic rami fractures while moving about at her own house. She had no loss of consciousness. She was not lightheaded at that time. She was not dizzy. She had no chest pain a nd no arrhythmias. 3. This is being managed and taken care. 4. Carcinoma of the breast with metastatic disease. 5. She is receiving help from Wound Care. She is being watched for this carefully, and the Oncology service is taking care of her cancer and the management of this problem. 6. Atrial fibrillation. 7. She has had a history of atrial fibrillation and she had been feeling breathless and short of rachel ath, and it was thought to be due to her atrial fibrillation, and so in 05/2014, she underwent AV nod al ablation for symptomatic atrial fibrillation, and she tolerated that AV node ablation of 4 very well. She was upgraded to from a single-chamber pacemaker to a dual chamber pacemaker. 8. And eventually, she stopped taking full anticoagulation as mentioned above. 9. She is not having any signs of complications from atrial fibrillation at this time. 10. She is taking her aspirin and doing well with that. 11. Postural hypotension. 12. She has postural hypotension and she has been on Lasix, diltiazem and Lopressor up until this ve ry day. We are going to hold those drugs and see if she improves. I am not quite sure why she is po sturally hypotensive at this time. There is nothing to suggest significant pericardial disease or ot her valvular disease as current cause. 13. We will hold her medications today, and if she is still hypotensive when she changes position to [place], we can do further workup, echocardiographic studies, etc. There is nothing to suggest an acu te coronary syndrome. 14. She has been lying around in bed and not doing very much for a little bit here and dehydration m ay be contributing a little bit. She also is quite anemic at this time and that well could be contri buting to her current inability to keep her blood pressure exactly the same, so we will watch her a d ay off medicine and then go from there. 15. I have talked to the hospitalist about this, and the patient. They are both happy with this eloy mackenzie for now and we will go from there further as needed. 16. Hypertension. 17. Her hypertension is not an issue right now, and we will watch and see how she does off medicatio n. Thank you very much for asking us to see this patient. We will follow her. /[id number]/MODL
--- NOTE | 2017-12-21 15:19 | PDMN ---
Medical Necessity Medical necessity: MCG: CG-GAC, General Admission Criteria: 87 y/o mechanical fall, left inferior and superior pubic ramus fracture. Chronic balance and gait abnormalities, hypotensive with orthostatic changes requiring IV bolus, unable to tolerate PT, patient with significant fracture pain, left breast cancer with metastatic disease with wound being managed by wound care, thrombocytopenia and anemia noted, cardiology consult, ortho consult, hx atrial fib, CHF, and has pacemaker. Status changed to inpatient 12/21 @ 1447.
--- NOTE | 2017-12-21 16:21 | ASMTCMCOM ---
CM Note CM Note Notes: Approved PASRR received from OBRA coordinator, sent to [facility] in [employer]. Pt will have bed at saved for when she is medically stable. Weekend contact at is [facility] [phone] or [phone]. D/c plan of care: [facility] when medically stable. Date Signed: 12/21/2017 04:20 PM Electronically Signed By:SNEHAL Sánchez
[2017-12-21] MEDS: METOPROLOL SUCCINATE XR 25 MG TAB PO SCH (20:54)
[2017-12-21] MEDS: Brinzolamide/Brimonidine Tart [Simbrinza 1%-0.2% Eye Drops] EACHEYE SCH (20:54)
[2017-12-22] MEDS: traMADol 50 MG TAB PO PRN (03:39)
[2017-12-22] MEDS: LEVOTHYROXINE 50 MCG TAB PO SCH (05:42)
[2017-12-22] MEDS: buPROPion XL 150 MG TAB PO SCH (09:16)
[2017-12-22] MEDS: FLUoxetine 20 MG CAP PO SCH (09:16)
[2017-12-22] MEDS: ASCORBIC ACID 500 MG TAB PO SCH (09:17)
[2017-12-22] MEDS: OMEGA-3 FATTY ACIDS 1,000 MG CAP PO SCH (09:17)
[2017-12-22] MEDS: SENNOSIDES/DOCUSATE SODIUM TAB PO SCH (09:17)
[2017-12-22] MEDS: CALCIUM CARBONATE 500 MG TAB PO SCH (09:17)
[2017-12-22] MEDS: VITAMIN B COMPLEX 1 EA CAP/TAB PO SCH (09:17)
[2017-12-22] MEDS: OXYCODONE/APAP 5/325 TAB PO PRN (09:18)
[2017-12-22] MEDS: CHOLECALCIFEROL VIT D3 1,000 UNITS TAB PO SCH (09:18)
[2017-12-22] MEDS: DILTIAZEM CD 120 MG CAP PO SCH (09:18)
[2017-12-22] MEDS: predniSONE 5 MG TAB PO SCH (09:18)
[2017-12-22] MEDS: DORZOLAMIDE/TIMOLOL 10 ML OPHT.BTL EACHEYE SCH (09:20)
[2017-12-22] MEDS: FUROSEMIDE 40 MG TAB PO SCH (10:13)
[2017-12-22] MEDS: POTASSIUM CL 20 MEQ TAB PO SCH (10:13)
--- NOTE | 2017-12-22 10:43 | PDCARPN ---
Cardiology Progress Note Chief Complaint: Hip and chest wall pains Assessment/Plan: Assessment: Patient is an 87 y/o female with history of pAF/FL s/p ablation with PPM, pHTN, HTN, SHELLY, with RA on MTX and prednisone, who presents to [facility] after fall with hip fracture. No cardiovascular complaints of chest pains or pressure (chest wall pains noted related to non healing wound from breast cancer lesion), no PND or orthopnea. Hold on cardizem initially (given hypotension that was noted) , which was resumed today, and at present, blood pressures are within normal limits (not hypotensive). No anticoagulation with pAF/FL history given a lack of arrhythmias (post ablation) by PPM interrogations. Plan: (1) Would monitor blood pressures today (to determine how she tolerates the resumption of the CCB) (2) Maintain scheduled outpatient follow up with cardiology (3) Maintain pacer interrogations as scheduled Subjective: No cardiovascular complaints Reviewed/Discussed With: hospitalist Objective: Vital Signs (8 Hrs) Temp Pulse Resp BP Pulse Ox 12/22/17 10:12 111/60 12/22/17 09:18 93 104/62 12/22/17 07:52 36.4 C 81 16 93/60 L 95 12/22/17 03:32 37.1 C 83 18 102/64 95 Intake/Output (24 Hrs) 12/21/17 12/22/17 12/23/17 05:59 05:59 05:59 Output Total 200 Balance -200 Output: Urine (ml) 200 Bedpan 200 Other: Number of Voids Bedpan 2 1 Bedside Commode 1 Number of Stools Bedside Commode 1 Result Diagrams: 12/20/17 05:11 12/19/17 12:55 Telemetry: sinus rhythm - Physical Exam Constitutional: WDWN, healthy appearing, apparent distress (hip pains) Eyes: PERRL, EOMI Ears, Nose, Mouth, Throat: moist mucous membranes Cardiovascular: regular rate and rhythm, pulses symmetric bilat, No jugular vein distention Peripheral Pulses: 2+: dorsalis-pedis (R), dorsalis-pedis (L) Respiratory: clear to auscultate bilat, no crackles Gastrointestinal: normoactive bowel sounds Skin: no edema Musculoskeletal: no muscular tenderness Neurologic: AAOx3, CN II-XII grossly intact Psychiatric: cooperative, interactive, following commands ICD10 Worksheet Patient Problems: Problems Problem Status Onset Fall Acute Fracture of left inferior pubic ramus Acute Fracture of left superior pubic ramus Acute Skin abnormality Acute Afib - Atrial fibrillation Active Cellulitis Active Depression - Depressive disorder Active Essential hypertension Active Hypothyroidism Active Right rib fracture Acute Traumatic hematoma of face Acute
--- NOTE | 2017-12-22 12:33 | SOAPPROG ---
SOAP Progress Note Assessment/Plan: E&M breast cancer * Left locally recurrent breast cancer, ER positive: She is currently on Faslodex plus palbociclib. I recommend she continue to stay off palbociclib for maybe another week until she regained some strength. She has been talking to Dr. Morse about possibly switching to Xeloda. * Pain related to locally advanced breast cancer left chest wall: She has not had radiation to this area and the Dr. Duque discussed that with them. She is to continue wound care. * Mechanical fracture of left inferior pubic ramus and superior pubic ramus: She has some chronic issues with balance and gait and would benefit from rehab. * Pancytopenia: This may be related to the palbociclib and another reason to continue holding it. I do not believe she has known bone marrow involvement or bone metastases. * History of atrial fibrillation and recent low blood pressure: Currently she is doing well and was evaluated by cardiology while in the hospital. Subjective: She is in good spirits and hoping to be able to leave for rehab today. She still has pain and particularly tenderness over the left chest wall as well as pain in her pelvis. Objective: Vital Signs Temp Pulse Resp BP Pulse Ox 36.5 C 85 16 98/62 L 97 12/22/17 11:52 12/22/17 11:52 12/22/17 11:52 12/22/17 11:52 12/22/17 11:52 12/21/17 12/22/17 12/23/17 05:59 05:59 05:59 Output Total 200 Balance -200 PT 15.1 SEC (12.0-15.0) H 12/19/17 12:55 INR 1.17 (0.83-1.16) H 12/19/17 12:55 Laboratory Tests 12/19/17 12/20/17 12:55 05:11 WBC 2.86 L 2.67 L Hgb 10.8 L 9.4 L Plt Count 63 L 43 L Physical Exam - Physical Exam General Appearance: no apparent distress Respiratory: lungs clear Skin: other (Her left chest wall is covered with a clean dressing. It is tender to palpation.) ICD10 Worksheet Patient Problems: Problems Problem Status Onset Fall Acute Fracture of left inferior pubic ramus Acute Fracture of left superior pubic ramus Acute Skin abnormality Acute Afib - Atrial fibrillation Active Cellulitis Active Depression - Depressive disorder Active Essential hypertension Active Hypothyroidism Active Right rib fracture Acute Traumatic hematoma of face Acute
[2017-12-22 12:38] VITALS: BP 87/61
--- NOTE | 2017-12-22 12:52 | PDIAF ---
- Diagnosis Diagnosis: pubic rami fracture Code Status: Do Not Resuscitate - Medication Management Discharge Medications: Medications to Continue on Transfer Ascorbic Acid [Vitamin C 500 mg (*)] 1,000 mg PO DAILY 12/15/14 [Last Taken ] Calcium Carbonate [Oyster Shell Calcium 500 mg (*)] 500 mg PO DAILY 12/15/14 [ Last Taken 12/18/17] Vitamin B Complex [B Complex] 1 each PO DAILY 12/15/14 [Last Taken 12/19/17] predniSONE 5 mg PO DAILY 12/15/14 [Last Taken 12/19/17] traMADol [Ultram 50 mg (*)] 50 mg PO HS PRN 08/10/15 [Last Taken 12/18/17 21:00] Herbals/Supplements -Info Only 1 ea PO DAILY 02/02/16 [Last Taken 01/31/16] traZODone [traZODONE 50MG (*)] 25 mg PO HS PRN #0 tab 05/12/16 [Last Taken 12/17] Acetaminophen [Tylenol ES 500 mg (*)] 500 mg PO Q8HRS PRN 12/19/17 [Last Taken 12/18/17 21:00] Brinzolamide/Brimonidine Tart [Simbrinza 1%-0.2% Eye Drops] 1 drop EACHEYE HS [Last Taken 12/18/17] Cholecalciferol Vit D3 [Vitamin D3 (*)] 1,000 units PO DAILY 12/19/17 [Last Taken 12/19/17] Diltiazem HCl [Cartia Xt] 120 mg PO DAILY 12/19/17 [Last Taken 12/19/17] Dorzolamide/Timolol [Cosopt (*)] 1 drop EACHEYE BID 12/19/17 [Last Taken 09:00] FLUoxetine [Prozac 20 MG (*)] 60 mg PO DAILY 12/19/17 [Last Taken 12/19/17] Fulvestrant [Faslodex] 250 mg IM Q30D 12/19/17 [Last Taken 1 Week Ago ~12/12/17] Levothyroxine [Synthroid 50 mcg (*)] 50 mcg PO DAILY06 12/19/17 [Last Taken ] [place]-3 Fatty Acids [Fish Oil 1000 mg (*)] 1,000 mg PO DAILY 12/19/17 [Last Taken 12/18/17] Palbociclib [Ibrance] 100 mg PO AD 12/19/17 [Last Taken 12/16/17] buPROPion XL [Wellbutrin 150mg XL] 300 mg PO DAILY 12/19/17 [Last Taken 12/19/17 ] Polyethylene Glycol 3350 [Miralax 17 gm (*)] 17 gm PO DAILY PRN pkt 12/22/17 [ Last Taken Unknown] Sennosides/Docusate Sodium [Senokot-S] 1 - 2 tab PO BID tab 12/22/17 [Last Taken Unknown] oxyCODONE/APAP 5/325 [Percocet 5/325 (*)] 1 - 2 tab PO Q4HRS PRN tab 12/22/17 [ Last Taken Unknown] Discharge Medications: Refer to the Discharge Home Medication list for PRN reason. PICC Care - Routine: N/A - Orders Services needed: Registered Nurse, Physical Therapy, Occupational Therapy Diet Recommendation: no restrictions on diet Additional Instructions: Dressing change orders for L breast: to be changed q3 days and PRN saturation/ odor. 1) cleanse w/ wound cleanser. 2) apply skin prep to periwound skin. 3) cut piece of Manukatex honey contact layer and apply to wound bed. May also use other honey-based dressing, such as Medihoney or Therahoney. 4) cover w/ Allevyn Life 6x6 dressing or other silicone-bordered foam. Precious Britton RN, CWON - Follow Up Care Current Providers and Referrals: Patient,NotPresent [Unknown] - As per Instructions
--- NOTE | 2017-12-22 16:19 | GDS ---
[f rep st] DISCHARGE SUMMARY DISCHARGE DIAGNOSES: 1. Orthostatic hypotension. 2. Pubic rami fracture. 3. Mechanical fall. 4. History of left breast cancer. 5. Chest wall pain. 6. Pancytopenia. 7. Macrocytosis. 8. Hypothyroidism. 9. History of atrial fibrillation. CONSULTATIONS: 1. Oncology. 2. Cardiology. STUDIES AND PROCEDURES DONE: Chest x-ray, hip x-ray, knee x-ray, pelvic x-ray. PHYSICAL EXAM: GENERAL: The patient is alert. VITAL SIGNS: Afebrile at 36.5, pulse 85, respirator y rate 16, blood pressure is 98/62. She is saturating 97% on 2 and 2.5 L. I have seen, evaluated the patient on the day of discharge. HOSPITAL COURSE: Patient is an 87-year-old female who presented to the emergency room after sufferin g a mechanical fall. She was evaluated and diagnosed with: 1. Fracture of the left inferior pubic rami as well as the superior pubic rami. During this hospita lization, she received a consultation from Orthopedics. Conservative management is recommended at is time. She will follow up in the outpatient setting with Dr. Duarte. 2. History of breast cancer. The patient did receive a consultation from Oncology during this hospi talization. Chest wall radiation was recommended and the patient will follow up with this in the out patient setting. 3. Generalized weakness. She requires rehabilitation secondary to this condition. 4. Orthostatic hypotension. Cardiology consulted on the patient during this hospital course. Her L asix has been discontinued as well as her Lopressor. She will continue on her Cardizem. Her blood p ressure is responding to the discontinuation of these antihypertensive medications and she will requi re monitoring in the outpatient setting. Followup will be with Cardiology in 1-2 weeks to differenti ate medication needs. 5. Pancytopenia. This is in the setting of medications and breast cancer. She does appear to be st able. 6. History of atrial fibrillation. She is in sinus rhythm. She has not had any episodes of atrial fibrillation that I am aware of during this hospital course. DISPOSITION: Patient will be discharged to [facility] for further strengthening and conditioning. She feels well today and is eager to be discharged from the hospital. FOLLOWUP: She will follow up in the outpatient setting with Dr. Duarte as well as Dr. Laura Morse, her [facility] oncologist, and Dr. Loni Rosa, her primary care provider as well as Dr. Nohemi Lala. DISCHARGE MEDICATIONS: Please refer to EMR form. I have discontinued the patient's Lasix 60 mg katy y, Lopressor XR 12.5 mg at bedtime, and potassium replacement. I have not adjusted the patient's oth er previously prescribed home medications to the best of my knowledge. She will get wound care at [facility]. I spent greater than 35 minutes in the care, coordination, and management of this patient's dispositi on. I have discussed her disposition with Cardiology and continuous pillowcase cutter. /[id number]/MODL
--- NOTE | 2017-12-22 18:43 | ASMTLACE ---
LACE Length of stay for Answers: 1 day current admission Acuity / Level of Answers: Yes Care: Did the patient have an inpatient admission? Comorbidities - select Answers: Any tumor (including all that apply lymphoma or leukemia) Chronic pulmonary disease # of Emergency department Answers: 1-2 visits in the last 6 months Score: 9 Date Signed: 12/22/2017 06:42 PM Electronically Signed By:Bina Huang RN
--- NOTE | 2017-12-22 18:51 | ASDISCHSUM ---
Discharge Information Plan Status:SNF Medically Cleared to Leave:12/22/2017 Discharge Date:12/22/2017 03:42 PM CM D/C Disposition:[facility] ADT D/C Disposition:[facility] Projected Discharge Date:12/22/2017 11:00 AM Transportation at D/C:ALS/BLS Discharge Delay Reason: Follow-Up Date:12/22/2017 11:00 AM Discharge Slot:2 - 12:01 pm - 18:00 pm Final Diagnosis:Orthostatic hypotension, pubic rami fracture, mechanical fall, hx of breast cancer, hypothyroid, chest wall pain, macrocystosis, pancytopenia Placement Information Referral Type:*Halfway/SNF Referral ID:[id number] Provider Name:[facility] Velas[facility] Address 1:[address] Address 2: City:[place] Selection Factors:Patient/Family Choice State:[place] Patient Contact Information Contact Name:AMNA Relationship:Niranjan Address:[address] City:[place] Alternate Phone: [facility]/Zip Code:[place] [address] Email: Financial Information Financial Class:Medicare Advantage Plans Primary Plan Desc:LiveRe Primary Plan Number:[id number] Secondary Plan Desc: Secondary Plan Number: Assessment Information LACE LACE Length of stay for Answers: 1 day current admission Acuity / Level of Answers: Yes Care: Did the patient have an inpatient admission? Comorbidities - select Answers: Any tumor (including all that apply lymphoma or leukemia) Chronic pulmonary disease # of Emergency department Answers: 1-2 visits in the last 6 months Score: 9 Date Signed: 12/22/2017 06:42 PM Electronically Signed By:Bina Huang RN [facility] CM Progress Note CM Note CM Note Notes: Pt admitted after fall sustaining pubic/rami fx. Ortho consult this AM, no surgery planned. Pt lives at [facility]. CM met w/pt who is open to going to [facility] if needed prior to returning to [facility] living there. Spoke w/Juan Antonio at [facility] and she thinks she will have bed available. Referral sent to Juan Antonio, awaiting therapy evals and will need to add these to referral once available. CM will follow. Date Signed: 12/20/2017 10:47 AM Electronically Signed By:Hue Vazquez RN [facility] CM Progress Note CM Note CM Note Notes: Juan Antonio with [facility] reports she now has a female bed, pt will not have to share with male. Pt PASRR triggered, faxed to Mar[facility] Powell. CM to follow. Date Signed: 12/21/2017 10:53 AM Electronically Signed By:SNEHAL Sánchez [facility] CM Progress Note CM Note CM Note Notes: Approved PASRR received from OBRA coordinator, sent to [facility] in [employer]. Pt will have bed at saved for when she is medically stable. Weekend contact at is [facility] [phone] or [phone]. D/c plan of care: [facility] when medically stable. Date Signed: 12/21/2017 04:20 PM Electronically Signed By:SNEHAL Sánchez Case Management Discharge Plan Note Case Management Discharge Discharge Order Complete? Answers: Yes Patient to Obtain Answers: Other Notes: via [facility] Medications Transportation Arranged Answers: [facility] will Pick (Date 12/22/2017 03:45 PM & Time) EMTALA Complete Answers: No Notes: N/A Case Management Transport Answers: Yes Notes: PCS form complete Form Complete Faxed Final Orders Answers: Yes Notes: Sent via [employer] and faxed manually per [facility]'s request; confirmed receipt Agency/Facility Transfer Answers: Yes Notes: Sent via [employer] and Report Printed & Faxed to faxed manually per Receiving Agency [facility]'s request; confirmed receipt Family Notified Answers: Yes Notes: Pt's niece Discharge Comments Notes: Reviewed chart, spoke with RAIMUNDO Nguyen. Pt to [facility] to [facility] today. Pt previously accepted at [facility]. Call placed to [facility] at [facility]. Per [facility], able to accept pt. Met with pt to discuss transportation options. Per RN, pt needs stretcher transport. Pt agrees she is unable to sit or stand at this time secondary to pubic rami fractures. Pt unsure about pre-paying, pt requesting to bill through insurance. PCS form completed. Discharge paperwork and orders faxed manually per [facility]'s request; confirmed receipt. Paperwork also sent with EMS. Pt updated her niece about transfer. IM signed. Pt to follow up as directed. CM available for any further issues or concerns. [facility] Date Signed: 12/22/2017 06:50 PM Electronically Signed By:Bina Huang RN Intervention Information Intervention Type:*IM-Signed Date of Service:12/22/2017 06:43 PM Patient Type:Inpatient Staff Member:RAIMUNDO Huang Taylor Hours: Discipline: Severity: Comment:
--- NOTE | 2017-12-22 18:51 | ASMTDCNOTE ---
Case Management Discharge Discharge Order Complete? Answers: Yes Patient to Obtain Answers: Other Notes: via [facility] Medications Transportation Arranged Answers: [facility] will Pick (Date 12/22/2017 03:45 PM & Time) EMTALA Complete Answers: No Notes: N/A Case Management Transport Answers: Yes Notes: PCS form complete Form Complete Faxed Final Orders Answers: Yes Notes: Sent via [employer] and faxed manually per [facility]'s request; confirmed receipt Agency/Facility Transfer Answers: Yes Notes: Sent via [employer] and Report Printed & Faxed to faxed manually per Receiving Agency [facility] request; confirmed receipt Family Notified Answers: Yes Notes: Pt's niece Discharge Comments Notes: Reviewed chart, spoke with RAIMUNDO Nguyen. Pt to discharge to half-way rehab today. Pt previously accepted at [facility]. Call placed to [facility] at [facility]. Per [facility], able to accept pt. Met with pt to discuss transportation options. Per RN, pt needs stretcher transport. Pt agrees she is unable to sit or stand at this time secondary to pubic rami fractures. Pt unsure about pre-paying, pt requesting to bill through insurance. PCS form completed. Discharge paperwork and orders faxed manually per [facility] request; confirmed receipt. Paperwork also sent with EMS. Pt updated her niece about transfer. IM signed. Pt to follow up as directed. CM available for any further issues or concerns. Discharge Plan: [facility] Date Signed: 12/22/2017 06:50 PM Electronically Signed By:Bina Huang RN
[2017-12-24] MEDS ORDERED: Palbociclib [Ibrance] 100 MG PO SCH (09:00)
[2018-01-11] MEDS ORDERED: FULVESTRANT IM SCH (08:00)
== END 2017-12-22 15:42 | DRG 536 ==
LOC: EDUNIT# → INTOOBSV 14:13 → F3N 16:29 → OBSVTOIN 12-21 14:47
PROVIDERS: ADMIT Family Medicine; ATTEND Family Medicine
DX: S32.512A Fracture of superior rim of left pubis, initial encounter for closed fracture (principal); S32.592A Other specified fracture of left pubis, initial encounter for closed fracture; W01.0XXA Fall on same level from slipping, tripping and stumbling without subsequent striking against object, initial encounter; Y92.018 Other place in single-family (private) house as the place of occurrence of the external cause; D61.818 Other pancytopenia; I95.1 Orthostatic hypotension; C77.3 Secondary and unspecified malignant neoplasm of axilla and upper limb lymph nodes; C79.89 Secondary malignant neoplasm of other specified sites; M06.9 Rheumatoid arthritis, unspecified; I48.91 Unspecified atrial fibrillation; R26.9 Unspecified abnormalities of gait and mobility; E03.9 Hypothyroidism, unspecified; I11.0 Hypertensive heart disease with heart failure; I50.9 Heart failure, unspecified; Z87.891 Personal history of nicotine dependence; Z85.3 Personal history of malignant neoplasm of breast; Z79.82 Long term (current) use of aspirin; Z95.0 Presence of cardiac pacemaker; Z91.81 History of falling; Z79.52 Long term (current) use of systemic steroids
CPT/HCPCS: 82607-90; 84134-90; 96374; 97161-GP; 97165-GO; 97530-GO; 97530-GP; 97535-GO; G0378; G8978-GP-CL; G8979-GP-CJ; G8987-GO-CK; G8988-GO-CJ; J2270; J2405; J7512